=== PATIENT | male | born 1975 | race Caucasian/White ===

== ENCOUNTER 2016-05-28 11:42 | Observation (INO) | payer BC ==
[~2016-05-28] VITALS: Ht 180.3 cm; Wt 99.3 kg
[~2016-05-28 11:42] MED LIST: PRILOSEC20 MG PO
[2016-05-28] MEDS ORDERED: GLUCOPHAGE500 MG PO ×2 (15:09→15:10)
[2016-05-28] MEDS ORDERED: TRULICITY1.5 MG/0.5 SUBCUT (15:16)
[2016-05-29] MEDS ORDERED: CIPRO500 MG PO (09:11)
[2016-05-29] MEDS ORDERED: FLAGYL500 MG PO (09:12)
[2016-05-29] MEDS ORDERED: PREDNISONE10 MG PO (09:14)
== END 2016-05-29 12:45 | disposition short-term general hospital (02) ==
LOC: ER 11:42 → IP 15:30 → OBS 15:30 → ER 15:30 → IP 15:30
PROVIDERS: ADMIT Family Medicine
DX: K52.9 Noninfective gastroenteritis and colitis, unspecified (principal); D72.829 Elevated white blood cell count, unspecified; E11.9 Type 2 diabetes mellitus without complications; E66.9 Obesity, unspecified; F17.210 Nicotine dependence, cigarettes, uncomplicated; Z79.899 Other long term (current) drug therapy; Z98.52 Vasectomy status
CPT/HCPCS: G0378; J2270; J2405; J2930; Q9963; Q9967

== ENCOUNTER 2016-06-20 08:20 | Day surgery (SDC) | payer BC ==
[~2016-06-20] VITALS: Ht 180.3 cm; Wt 99.3 kg
[~2016-06-20 08:20] MED LIST changes: +CIPRO500 MG PO; +FLAGYL500 MG PO; +GLUCOPHAGE500 MG PO; +PREDNISONE10 MG PO; +TRULICITY1.5 MG/0.5 SUBCUT
== END 2016-06-20 10:50 | disposition short-term general hospital (02) ==
LOC: SURGOP 08:20
PROC: 0DJD8ZZ Inspection of Lower Intestinal Tract, Via Natural or Artificial Opening Endoscopic (ICD-10-PCS; principal; 2016-06-20)
DX: K62.5 Hemorrhage of anus and rectum (principal); L05.91 Pilonidal cyst without abscess; E11.9 Type 2 diabetes mellitus without complications; K21.9 Gastro-esophageal reflux disease without esophagitis; F17.210 Nicotine dependence, cigarettes, uncomplicated; Z86.69 Personal history of other diseases of the nervous system and sense organs; Z79.899 Other long term (current) drug therapy
CPT/HCPCS: J2175; J2250